=== PATIENT | female | born 1970 | race Caucasian/White ===

== ENCOUNTER → 2018-07-13 08:30 | Outpatient (CLI) | payer OTHER, MEDICAID, SELFPAY ==
[2018-07-13 09:07] LABS: Add Manual Diff / Slide Review NO; Basophils Percent Auto 0.8 % (0-2); Eosinophils Percent Auto 2.6 % (2-4); Hematocrit 38.7 % (36-46); Hemoglobin 13.3 g/dL (12.0-16.0); Lymphocytes Percent Auto 25.3 % (25-40); Mean Corpuscular HGB Conc 34.4 % (30-36); Mean Corpuscular Hemoglobin 32.3 PG (26-34); Mean Corpuscular Volume 93.8 fL (80-100); Monocytes Percent Auto 5.3 % (3-14); Neutrophils Absolute Auto 4600 /uL (3000-5900); Platelet Count 263 X10^3/uL (150-400); Red Blood Cell Count 4.13 X10^6/uL (4.0-5.2); White Blood Cell Count 6.9 X10^3/uL (4.5-11.0)
[2018-07-13 09:54] LABS: Alanine Aminotransferase 32 IU/L (9-52); Albumin 4.2 g/dL (3.5-5.0); Albumin Globulin Ratio 1.4 (1.0-2.8); Alkaline Phosphatase 71 U/L (38-126); Aspartate Aminotransferase 23 IU/L (14-36); BUN Creatinine Ratio 17.5 (6-22); Bilirubin Total 0.7 mg/dL (0.2-1.3); Blood Urea Nitrogen 14 mg/dL (7-17); Calcium 9.2 mg/dL (8.4-10.2); Carbon Dioxide 31 mmol/L (22-32); Chloride 103 mmol/L (98-107); Cholesterol 217 mg/dL (140-199); Estimated Glomerular Filt Rate > 60.0 mL/min (>60); Globulin 2.9 g/dL (1.7-4.1); Glucose 105 mg/dL (70-100); HDL Cholesterol 37 mg/dL (40-60); HEMOLYSIS < 15 (0-50); LDL Cholesterol Calculated 134 mg/dL (<100); Potassium 4.3 mmol/L (3.4-5.1); Sodium 143 mmol/L (137-145); Total Protein 7.1 g/dL (6.3-8.2); Triglycerides 228 mg/dL (35-150)
== END ==
PROVIDERS: PCP Physician Assistant; Visit Provider Physician Assistant
DX: F17.200 Nicotine dependence, unspecified, uncomplicated (principal); R06.00 Dyspnea, unspecified; Z13.220 Encounter for screening for lipoid disorders; Z13.6 Encounter for screening for cardiovascular disorders
CPT/HCPCS: 36415; 80053; 80061; 85025

== ENCOUNTER → 2019-01-03 10:43 | Outpatient (CLI) | payer OTHER, MEDICAID, SELFPAY ==
--- NOTE | 2019-01-03 10:44 | DI.MG.S_ITS ---
BILATERAL DIGITAL SCREENING MAMMOGRAM 3D/2D WITH CAD: 01/03/2019 CLINICAL: Routine screening. Baseline exam by default. No prior exams were available for comparison. The tissue of both breasts is predominantly fatty. Current study was also evaluated with a Computer Aided Detection (CAD) system. No significant masses, calcifications, or other findings are seen in either breast. IMPRESSION: NEGATIVE There is no mammographic evidence of malignancy. A 1 year screening mammogram is recommended. This exam was interpreted at Station ID: [id number]. NOTE: For mammograms, a report in lay terms will be sent to the patient. Approximately 15% of breast malignancies will not be visualized mammographically. In the management of a palpable breast mass, a negative mammogram must not discourage biopsy of a clinically suspicious lesion. Electronically Signed By: Bernardino gann/monroe:01/04/2019 08:01:05 letter sent: Normal Exam ACR BI-RADS Category 1: Negative [id number]
== END ==
PROVIDERS: PCP Physician Assistant; Visit Provider Physician Assistant
DX: Z12.31 Encounter for screening mammogram for malignant neoplasm of breast (principal)
CPT/HCPCS: 77063; 77067

== ENCOUNTER → 2019-01-29 16:07 | Outpatient (CLI) | payer OTHER, MEDICAID, SELFPAY ==
[2019-01-29 17:00] LABS: Influenza A and B by PCR Rapid Negative (Negative)
== END ==
PROVIDERS: PCP Physician Assistant; Visit Provider Physician Assistant
DX: R05 Cough (principal); R50.9 Fever, unspecified; R52 Pain, unspecified
CPT/HCPCS: 87400

== ENCOUNTER → 2019-03-15 11:20 | Outpatient (CLI) | payer OTHER, MEDICAID, SELFPAY ==
[2019-03-15 12:12] LABS: Alanine Aminotransferase 33 IU/L (9-52); Albumin 4.3 g/dL (3.5-5.0); Albumin Globulin Ratio 1.5 (1.0-2.8); Alkaline Phosphatase 71 U/L (38-126); Aspartate Aminotransferase 23 IU/L (14-36); Bilirubin Total 0.5 mg/dL (0.2-1.3); Blood Urea Nitrogen 14 mg/dL (7-17); Calcium 9.3 mg/dL (8.4-10.2); Carbon Dioxide 31 mmol/L (22-32); Chloride 104 mmol/L (98-107); Cholesterol 162 mg/dL (140-199); Estimated Glomerular Filt Rate > 60.0 mL/min (>60); Globulin 2.9 g/dL (1.7-4.1); Glucose 93 mg/dL (70-100); HDL Cholesterol 38 mg/dL (40-60); HEMOLYSIS < 15 (0-50); LDL Cholesterol Calculated 83 mg/dL (<100); Potassium 4.6 mmol/L (3.4-5.1); Sodium 140 mmol/L (137-145); Total Protein 7.2 g/dL (6.3-8.2); Triglycerides 206 mg/dL (35-150)
== END ==
PROVIDERS: PCP Physician Assistant; Visit Provider Physician Assistant
DX: E78.2 Mixed hyperlipidemia (principal)
CPT/HCPCS: 36415; 80053; 80061

== ENCOUNTER → 2020-06-17 09:37 | Outpatient (CLI) | payer OTHER, MEDICAID, SELFPAY ==
[2020-06-17 10:04] LABS: Hematocrit 40.9 % (36-46); Hemoglobin 13.9 g/dL (12.0-16.0); Mean Corpuscular HGB Conc 33.9 % (30-36); Mean Corpuscular Hemoglobin 32.3 PG (26-34); Mean Corpuscular Volume 95.1 fL (80-100); Platelet Count 256 X10^3/uL (150-400); Red Cell Distribution Width 13.1 % (11.6-14.8)
[2020-06-17 10:19] LABS: Alanine Aminotransferase 29 IU/L (<35); Albumin 4.5 g/dL (3.5-5.0); Albumin Globulin Ratio 1.5 (1.0-2.8); Alkaline Phosphatase 74 U/L (38-126); Aspartate Aminotransferase 25 IU/L (14-36); Bilirubin Total 0.5 mg/dL (0.2-1.3); Blood Urea Nitrogen 17 mg/dL (7-17); Calcium 9.6 mg/dL (8.4-10.2); Carbon Dioxide 27 mmol/L (22-32); Chloride 105 mmol/L (98-107); Cholesterol 182 mg/dL (140-199); Estimated Glomerular Filt Rate > 60.0 mL/min (>60); Globulin 3.1 g/dL (1.7-4.1); Glucose 112 mg/dL (70-100); HDL Cholesterol 40 mg/dL (40-60); HEMOLYSIS < 15 (0-50); LDL Cholesterol Calculated 115 mg/dL (<100); Potassium 4.1 mmol/L (3.4-5.1); Sodium 139 mmol/L (137-145); Total Protein 7.6 g/dL (6.3-8.2); Triglycerides 135 mg/dL (35-150)
[2020-06-17 15:51] LABS: Hemoglobin A1C% w Est Avg Glu 5.2 % (4.0-6.0)
== END ==
PROVIDERS: PCP Nurse Practitioner Family; Referring Provider Nurse Practitioner Family; Visit Provider Nurse Practitioner Family
DX: E78.2 Mixed hyperlipidemia (principal); J44.9 Chronic obstructive pulmonary disease, unspecified
CPT/HCPCS: 36415; 80053; 80061; 83036; 85027

== ENCOUNTER → 2021-06-24 16:30 | Outpatient (CLI) | payer OTHER, MEDICAID, SELFPAY ==
[2021-06-24 17:16] LABS: COVID19 -Nasal RAPID Negative (Negative)
== END ==
PROVIDERS: PCP Nurse Practitioner Family; Visit Provider Nurse Practitioner Family
DX: R05 Cough (principal)
CPT/HCPCS: 87635

== ENCOUNTER → 2021-06-24 17:09 | Outpatient (CLI) | payer OTHER, MEDICAID, SELFPAY ==
--- NOTE | 2021-06-24 17:10 | DI.RAD.S_ITS ---
PROCEDURE: XR CHEST 2V INDICATIONS: cough, congestion TECHNIQUE: 2 views of the chest were acquired. COMPARISON: [facility], , CHEST 2 VIEW, 03/25/2016, 16:15. FINDINGS: Surgical changes and devices: None. Lungs and pleura: Lungs are clear. No pleural effusions or pneumothorax. Mediastinum: Mediastinal contours are normal. Heart size is normal. Bones and chest wall: No suspicious bony abnormalities. Old healed left lateral mid to lower rib fractures are again seen. Soft tissues appear unremarkable. IMPRESSION: No focal infiltrate, pleural effusion or pneumothorax. Dictated by: Quentin Bowles M.D. on 06/25/2021 at 10:20 Approved by: Quentin Bowles M.D. on 06/25/2021 at 10:21
== END ==
PROVIDERS: PCP Nurse Practitioner Family; Referring Provider Nurse Practitioner Family; Visit Provider Nurse Practitioner Family
DX: J06.9 Acute upper respiratory infection, unspecified (principal); J44.9 Chronic obstructive pulmonary disease, unspecified; R05 Cough
CPT/HCPCS: 71046; 87635

== ENCOUNTER → 2021-10-22 12:26 | Outpatient (CLI) | payer OTHER, MEDICAID, SELFPAY ==
--- NOTE | 2021-10-22 12:27 | DI.RAD.S_ITS ---
PROCEDURE: XR FOOT LT MIN 3V INDICATIONS: left foot pain after injury TECHNIQUE: 3 views of the foot were acquired. COMPARISON: None. FINDINGS: Bones: Cortical irregularity and lucency present involving the proximal shaft of the 4th metatarsus. Mild hallux valgus metatarsus prima varus alignment and medial bunion. Mild 1st MTP and diffuse interphalangeal joint space narrowing. Plantar calcaneal enthesophyte. No suspicious bony lesions. Soft tissues: No tibiotalar joint effusion. Achilles tendon appears normal. IMPRESSION: 1. Findings suspicious for fracture involving the proximal shaft of the 4th metatarsus which has a subacute appearance. Recommend clinical correlation to point tenderness. 2. Hallux valgus alignment and medial bunion. 3. 1st MTP and diffuse interphalangeal joint degeneration. 4. Calcaneal enthesopathy. Dictated by: Moi Pinon [facility] Interpreted: Kimberlee Jean MD on 10/22/2021 at 13:11 Transcribed by: MELANY on 10/22/2021 at 13:13 Approved by: Kimberlee Jean M.D. on 10/22/2021 at 13:39
== END ==
PROVIDERS: PCP Nurse Practitioner Family; Referring Provider Nurse Practitioner Family; Visit Provider Nurse Practitioner Family
DX: S99.922A Unspecified injury of left foot, initial encounter (principal); M20.12 Hallux valgus (acquired), left foot; M21.612 Bunion of left foot; M19.072 Primary osteoarthritis, left ankle and foot; M77.32 Calcaneal spur, left foot; M79.672 Pain in left foot; X58.XXXA Exposure to other specified factors, initial encounter
CPT/HCPCS: 73630

== ENCOUNTER 2021-11-06 12:00 | Outpatient (RCR) | payer OTHER, MEDICAID, SELFPAY ==
--- NOTE | 2021-11-04 12:27 | PT.OIE ---
Current Diagnoses Sciatica, left side (11/04/21) Pain in left foot (11/04/21) Other abnormalities of gait and mobility (11/04/21) Past Medical History (Last Updated 10/22/21 @ 12:20 by TAPAN Arredondo) Left foot pain Medication refill URI (upper respiratory infection) Visit Care Team Role Provider Type TAPAN Arredondo Attending Provider Advanced Development Technologist Family Provider Primary Care Provider Referring Provider Specialty: Family Practice Address: [address] [place] [address], [facility] Email: [email or web address] Physical Therapy Initial Evaluation PT-OP-A Visit Information Start: 11/04/21 11:55 Freq: Status: Active Protocol: Document 11/04/21 11:15 DCW (Rec: 11/04/21 12:08 DCW [id number]) Out-Patient Physical Therapy Visit Information Visit Information Visit Type Initial Evaluation Visit Start Time 11:15 Visit Stop Time 11:50 Total Visit Minutes 35 Visit Number 1 Number of MANAGER TARGET Visits 0 Evaluation Information Evaluation Date 11/04/21 PT-OP-B Current Condition Start: 11/04/21 11:55 Freq: Status: Active Protocol: Document 11/04/21 11:15 DCW (Rec: 11/04/21 12:08 DCW [id number]) Current Condition History of Current Condition Onset Date ~3 month history Current Complaints Left hip/radicular leg pain following L foot fx History of Current Condition Pt is a 50 year old female presenting with a 1 month history of low back/posterior hip pain, which began a few months after pt caught her foot in a rock while hiking in July. Pt notes she thought it was just sprained, so I never did anything for it , but admits it changed the way she was walking, and after a few months, she began to have increased pain in her left posterior hip and down her left leg. Reports she was finally seen by her PCP on 10/22, was found to have a fracture in the shaft of her 4th metatarsal, and has since been wearing a boot. Notes the boot has actually created worsening hip pain, but does note that she woke up today feeling much better than she has been. 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 Prior Treatments and Tests L foot x-ray: IMPRESSION: 1. Findings suspicious for fracture involving the proximal shaft of the 4th metatarsus which has a subacute appearance. Recommend clinical correlation to point tenderness. 2. Hallux valgus alignment and medial bunion. 3. 1st MTP and diffuse interphalangeal joint degeneration. 4. Calcaneal enthesopathy. Dictated by: Moi Pinon RRJuan Interpreted: Kimberlee Jean MD on 10/22/2021 Treatment Goals Patient/Caregiver Goals I really need to get rid of this back pain so I can get back to work. PT-OP-C Subjective Start: 11/04/21 11:55 Freq: Status: Active Protocol: Document 11/04/21 11:15 DCW (Rec: 11/04/21 12:08 DCW [id number]) OP-PT Subjective Patient Comments Patient Comments I wonder how much this boot is actually making my back worse. Patient Questionnaires Lower Extremity Functional Scale LEFS Score 15/80 = 18.75% LEFS Impairment 80 to 99% Impaired (Score 1-16 ) PT-OP-F Manual Assessment Start: 11/04/21 11:55 Freq: Status: Active Protocol: Document 11/04/21 11:15 DCW (Rec: 11/04/21 12:14 DCW [id number]) Manual Assessments Soft Tissue Assessment Soft Tissue Mobility Assessment Severe tone with tenderness to palpation 3/4: Wincing and withdraw at left piriformis. No notable complaints of pain along paraspinals or lateral hip Joint Mobility Assessment Joint Mobility Assessment Hypomobility with lumbar P->A joint mobility PT-OP-G Mobility & Gait Start: 11/04/21 11:55 Freq: Status: Active Protocol: Document 11/04/21 11:15 DCW (Rec: 11/04/21 12:14 DCW [id number]) OP Gait Assessment Comments Gait Comments Pt stands with a clear uneven lean to the R secondary to raised base of left walking boot vs right footwear PT-OP-L Special Tests Start: 11/04/21 11:55 Freq: Status: Active Protocol: Document 11/04/21 11:15 DCW (Rec: 11/04/21 12:14 DCW [id number]) Special Tests Lumbar Spine Special Tests Straight Leg Raise Test Results c/o Hamstring tightness Slump Test Results c/o Hamstring tightness Compression Test Results Negative A-P Shearing Test Results Negative Hip Special Tests MANSI Test Results Negative Piriformis Test Results Strongly replicates radicular symptoms PT-OP-Q Treatments Start: 11/04/21 11:55 Freq: Status: Active Protocol: Document 11/04/21 11:15 DCW (Rec: 11/04/21 12:09 DCW [id number]) Therapeutic Exercises Supine Exercises 1 Supine Exercise Name Piriformis stretch Side left Comments Knee to opposite shoulder Sitting Exercises 2 Sitting Exercise Name Self piriformis STM /c tennis ball 1 Sitting Exercise Name Piriformis stretch Side left Comments Seated figure-4 PT-OP-T Assessment and Plan Start: 11/04/21 11:55 Freq: Status: Active Protocol: Document 11/04/21 11:15 DCW (Rec: 11/04/21 12:27 DCW [id number]) Physical Therapy Assessment Rehab Potential Rehabilitation Potential Excellent Evaluation Complexity Number of Personal Factors/Comorbidities 1-2 Number of Body Systems Impaired 3 Clinical Presentation at Evaluation Stable Impairments Impairments Gait,Pain,Posture,Soft Tissue Mobility,Tone Goals Two Impairment Pt experiences radiating pain along posterior L thigh and lateral lower leg Senior Living Goal (LTG) 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 LTG Duration 12/30/21 One Impairment Pt does not have an appropriate home exercise program Short Term Goal (STG) Pt to be independent and compliant with an appropriate HEP STG Duration 12/05/21 Assessment Summary Assessment Pt presents with signs and symptoms consistent with piriformis syndrome, possibly resulting from changes to her gait pattern following the fracture of her left 4th metatarsal. Pt has a very hypertonic left piriformis, with palpation replicating many of her radicular symptoms . Pt responded very well to stretching and brief palpation during assessment, noting immediate improvement. Pt was given a cork insert on her right shoe to decrease high difference between her shoe and walking boot. Pt responsive to instructions for stretching and self-STM of left piriformis. Pt will likely benefit from continued skilled therapy focusing on decreasing tone and neural tension in left leg. Physical Therapy Plan Frequency and Duration Frequency of Treatment 2x/Week Duration of Treatment 8 weeks Plan of Care Start Date 11/04/21 Plan of Care End Date 12/30/21 Therapeutic Interventions Therapeutic Interventions Aquatic Therapy,Gait Training, Home Exercise Program,Joint Mobilizations,Manual Therapy, Patient/Caregiver Education, Self-Care/Home Management,Soft Tissue Mobilization, Therapeutic Activities, Therapeutic Exercises Modalities Ultrasound Next Visit Focus/Plan Next Note Type Treatment Note Next Visit Plan Flexibility/stretching, STM
--- NOTE | 2021-11-04 12:28 | PT.OPPOC ---
Physical, Occupational & Speech Therapy At [facility] Current Diagnoses Sciatica, left side (11/04/21) Pain in left foot (11/04/21) Other abnormalities of gait and mobility (11/04/21) Visit Care Team Role Provider Type TAPAN Arredondo Attending Provider Advanced Account Receivable Associate Family Provider Primary Care Provider Referring Provider Specialty: Family Practice Address: [address] [place] [address], [id number] Email: [email or web address] Plan Of Care PT-OP-T Assessment and Plan Start: 11/04/21 11:55 Freq: Status: Active Protocol: Document 11/04/21 11:15 DCW (Rec: 11/04/21 12:27 DCW [id number]) Physical Therapy Assessment Rehab Potential Rehabilitation Potential Excellent Evaluation Complexity Number of Personal Factors/Comorbidities 1-2 Number of Body Systems Impaired 3 Clinical Presentation at Evaluation Stable Impairments Impairments Gait,Pain,Posture,Soft Tissue Mobility,Tone Goals Two Impairment Pt experiences radiating pain along posterior L thigh and lateral lower leg Retirement Goal (LTG) 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 LTG Duration 12/30/21 One Impairment Pt does not have an appropriate home exercise program Short Term Goal (STG) Pt to be independent and compliant with an appropriate HEP STG Duration 12/05/21 Assessment Summary Assessment Pt presents with signs and symptoms consistent with piriformis syndrome, possibly resulting from changes to her gait pattern following the fracture of her left 4th metatarsal. Pt has a very hypertonic left piriformis, with palpation replicating many of her radicular symptoms . Pt responded very well to stretching and brief palpation during assessment, noting immediate improvement. Pt was given a cork insert on her right shoe to decrease high difference between her shoe and walking boot. Pt responsive to instructions for stretching and self-STM of left piriformis. Pt will likely benefit from continued skilled therapy focusing on decreasing tone and neural tension in left leg. Physical Therapy Plan Frequency and Duration Frequency of Treatment 2x/Week Duration of Treatment 8 weeks Plan of Care Start Date 11/04/21 Plan of Care End Date 03/16/22 Therapeutic Interventions Therapeutic Interventions Aquatic Therapy,Gait Training, Home Exercise Program,Joint Mobilizations,Manual Therapy, Patient/Caregiver Education, Self-Care/Home Management,Soft Tissue Mobilization, Therapeutic Activities, Therapeutic Exercises Modalities Ultrasound Next Visit Focus/Plan Next Note Type Treatment Note Next Visit Plan Flexibility/stretching, STM Plan of Care Dates Plan of Care Start Date 11/04/21 Plan of Care End Date 12/30/21 Electronically Signed by: Tomas Duke, PT 11/04/21 [id number] Please Sign and Return: I have reviewed this Plan of Care and certify that the skilled therapy services above are required to meet the patient?s needs. Physician Signature Date Printed Name and Credentials Clinical Instructor Signature Printed Name and Credentials
--- NOTE | 2021-11-06 12:43 | PT.OTN ---
Current Diagnoses Sciatica, left side (11/06/21) Pain in left foot (11/06/21) Other abnormalities of gait and mobility (11/06/21) Physical Therapy Treatment Note PT-OP-A Visit Information Start: 11/04/21 11:55 Freq: Status: Active Protocol: Document 11/06/21 12:00 DCW (Rec: 11/06/21 12:43 DCW [id number]) Out-Patient Physical Therapy Visit Information Visit Information Visit Type Treatment Note Visit Start Time 12:00 Visit Stop Time 12:45 Total Visit Minutes 45 Visit Number 2 Number of CITY RECORDER Visits 0 Evaluation Information Evaluation Date 11/04/21 PT-OP-B Current Condition Start: 11/04/21 11:55 Freq: Status: Active Protocol: Document 11/04/21 11:15 DCW (Rec: 11/04/21 12:08 DCW [id number]) Current Condition History of Current Condition Onset Date ~3 month history Current Complaints Left hip/radicular leg pain following L foot fx History of Current Condition Pt is a 50 year old female presenting with a 1 month history of low back/posterior hip pain, which began a few months after pt caught her foot in a rock while hiking in July. Pt notes she thought it was just sprained, so I never did anything for it , but admits it changed the way she was walking, and after a few months, she began to have increased pain in her left posterior hip and down her left leg. Reports she was finally seen by her PCP on 10/22, was found to have a fracture in the shaft of her 4th metatarsal, and has since been wearing a boot. Notes the boot has actually created worsening hip pain, but does note that she woke up today feeling much better than she has been. 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 Prior Treatments and Tests L foot x-ray: IMPRESSION: 1. Findings suspicious for fracture involving the proximal shaft of the 4th metatarsus which has a subacute appearance. Recommend clinical correlation to point tenderness. 2. Hallux valgus alignment and medial bunion. 3. 1st MTP and diffuse interphalangeal joint degeneration. 4. Calcaneal enthesopathy. Dictated by: Moi GÓMEZ Interpreted: Kimberlee Jean MD on 10/22/2021 Treatment Goals Patient/Caregiver Goals I really need to get rid of this back pain so I can get back to work. PT-OP-C Subjective Start: 11/04/21 11:55 Freq: Status: Active Protocol: Document 11/06/21 12:00 DCW (Rec: 11/06/21 12:43 DCW [id number]) OP-PT Subjective Patient Comments Patient Comments The foot is what's really bothing me. The leg hurts, but it's not crippling me. PT-OP-F Manual Assessment Start: 11/04/21 11:55 Freq: Status: Active Protocol: Document 11/04/21 11:15 DCW (Rec: 11/04/21 12:14 DCW [id number]) Manual Assessments Soft Tissue Assessment Soft Tissue Mobility Assessment Severe tone with tenderness to palpation 3/4: Wincing and withdraw at left piriformis. No notable complaints of pain along paraspinals or lateral hip Joint Mobility Assessment Joint Mobility Assessment Hypomobility with lumbar P->A joint mobility PT-OP-G Mobility & Gait Start: 11/04/21 11:55 Freq: Status: Active Protocol: Document 11/04/21 11:15 DCW (Rec: 11/04/21 12:14 DCW [id number]) OP Gait Assessment Comments Gait Comments Pt stands with a clear uneven lean to the R secondary to raised base of left walking boot vs right footwear PT-OP-L Special Tests Start: 11/04/21 11:55 Freq: Status: Active Protocol: Document 11/04/21 11:15 DCW (Rec: 11/04/21 12:14 DCW [id number]) Special Tests Lumbar Spine Special Tests Straight Leg Raise Test Results c/o Hamstring tightness Slump Test Results c/o Hamstring tightness Compression Test Results Negative A-P Shearing Test Results Negative Hip Special Tests MANSI Test Results Negative Piriformis Test Results Strongly replicates radicular symptoms PT-OP-Q Treatments Start: 11/04/21 11:55 Freq: Status: Active Protocol: Document 11/06/21 12:00 DCW (Rec: 11/06/21 12:43 DCW [id number]) Therapeutic Exercises Supine Exercises 2 Supine Exercise Name Hamstring stretch Side left 1 Supine Exercise Name Piriformis stretch Side left Comments Knee to opposite shoulder Sidelying Exercises 2 Sidelying Exercise Name Reverse Clamshell Side bilateral 1 Sidelying Exercise Name Clamshell Side bilateral Manual Therapy Treatment Soft Tissue Mobilization 1 Body Location L piriformis Mobilization Type Strumming,Sustained Pressure Intensity/Depth Moderate Body Position Sidelying PT-OP-T Assessment and Plan Start: 11/04/21 11:55 Freq: Status: Active Protocol: Document 11/06/21 12:00 DCW (Rec: 11/06/21 12:43 DCW [id number]) Physical Therapy Assessment Impairments Impairments Gait,Pain,Posture,Soft Tissue Mobility,Tone Goals Two Impairment Pt experiences radiating pain along posterior L thigh and lateral lower leg Residential Goal (LTG) 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 LTG Duration 12/30/21 One Impairment Pt does not have an appropriate home exercise program Short Term Goal (STG) Pt to be independent and compliant with an appropriate HEP STG Duration 12/05/21 Assessment Summary Assessment Pt tolerated treatment okay today, somewhat self-limiting with stretching and a little resistant to extended stretching. Does admit she doesn't push it too much at home, willing to at least try stretching a little more frequently. Physical Therapy Plan Frequency and Duration Frequency of Treatment 2x/Week Duration of Treatment 8 weeks Plan of Care Start Date 11/04/21 Plan of Care End Date 12/30/21 Therapeutic Interventions Therapeutic Interventions Aquatic Therapy,Gait Training, Home Exercise Program,Joint Mobilizations,Manual Therapy, Patient/Caregiver Education, Self-Care/Home Management,Soft Tissue Mobilization, Therapeutic Activities, Therapeutic Exercises Modalities Ultrasound Next Visit Focus/Plan Next Note Type Treatment Note Next Visit Plan Flexibility/stretching, STM
--- NOTE | 2021-11-09 16:10 | PT-OP ANOTE ---
Pt cancelled tomorrow's appt, reported to front desk associate: taylor virus concern, feeling ill. Pt has next appt on 11/13/21.
--- NOTE | 2022-07-26 11:57 | PT.OPDS ---
Current Diagnoses Sciatica, left side (11/06/21) Pain in left foot (11/06/21) Other abnormalities of gait and mobility (11/06/21) Visit Care Team Role Provider Type TAPAN Arredondo Attending Provider Advanced Retail Business Development Manager Family Provider Primary Care Provider Referring Provider Specialty: Medical Address: [address] [place] [address], [id number] Email: [email or web address] Visit Number Visit Number 2 Discharge Summary PT-OP-B Current Condition Start: 11/04/21 11:55 Freq: Status: Active Protocol: Document 11/04/21 11:15 DCW (Rec: 11/04/21 12:08 DCW [id number]) Current Condition History of Current Condition Onset Date ~3 month history Current Complaints Left hip/radicular leg pain following L foot fx History of Current Condition Pt is a 50 year old female presenting with a 1 month history of low back/posterior hip pain, which began a few months after pt caught her foot in a rock while hiking in July. Pt notes she thought it was just sprained, so I never did anything for it , but admits it changed the way she was walking, and after a few months, she began to have increased pain in her left posterior hip and down her left leg. Reports she was finally seen by her PCP on 10/22, was found to have a fracture in the shaft of her 4th metatarsal, and has since been wearing a boot. Notes the boot has actually created worsening hip pain, but does note that she woke up today feeling much better than she has been. 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 Prior Treatments and Tests L foot x-ray: IMPRESSION: 1. Findings suspicious for fracture involving the proximal shaft of the 4th metatarsus which has a subacute appearance. Recommend clinical correlation to point tenderness. 2. Hallux valgus alignment and medial bunion. 3. 1st MTP and diffuse interphalangeal joint degeneration. 4. Calcaneal enthesopathy. Dictated by: Moi GÓMEZ Interpreted: Kimberlee Jean MD on 10/22/2021 Treatment Goals Patient/Caregiver Goals I really need to get rid of this back pain so I can get back to work. PT-OP-C Subjective Start: 11/04/21 11:55 Freq: Status: Active Protocol: Document 11/06/21 12:00 DCW (Rec: 11/06/21 12:43 DCW [id number]) OP-PT Subjective Patient Comments Patient Comments The foot is what's really bothing me. The leg hurts, but it's not crippling me. PT-OP-F Manual Assessment Start: 11/04/21 11:55 Freq: Status: Active Protocol: Document 11/04/21 11:15 DCW (Rec: 11/04/21 12:14 DCW [id number]) Manual Assessments Soft Tissue Assessment Soft Tissue Mobility Assessment Severe tone with tenderness to palpation 3/4: Wincing and withdraw at left piriformis. No notable complaints of pain along paraspinals or lateral hip Joint Mobility Assessment Joint Mobility Assessment Hypomobility with lumbar P->A joint mobility PT-OP-G Mobility & Gait Start: 11/04/21 11:55 Freq: Status: Active Protocol: Document 11/04/21 11:15 DCW (Rec: 11/04/21 12:14 DCW [id number]) OP Gait Assessment Comments Gait Comments Pt stands with a clear uneven lean to the R secondary to raised base of left walking boot vs right footwear PT-OP-L Special Tests Start: 11/04/21 11:55 Freq: Status: Active Protocol: Document 11/04/21 11:15 DCW (Rec: 11/04/21 12:14 DCW [id number]) Special Tests Lumbar Spine Special Tests Straight Leg Raise Test Results c/o Hamstring tightness Slump Test Results c/o Hamstring tightness Compression Test Results Negative A-P Shearing Test Results Negative Hip Special Tests MANSI Test Results Negative Piriformis Test Results Strongly replicates radicular symptoms PT-OP-T Assessment and Plan Start: 11/04/21 11:55 Freq: Status: Active Protocol: Document 07/26/22 11:57 DCW (Rec: 07/26/22 11:57 DCW [id number]) Physical Therapy Assessment Assessment Summary Assessment Pt has not been seen in eight months. Will discharge at this time. Pt will require a new referral in order to return to skilled therapy. Physical Therapy Plan Discharge Physical Therapy Discharge Reasons No Longer Attending PT Next Visit Focus/Plan Next Note Type Discharge Summary
== END 2022-07-27 11:51 | disposition home or self-care (01) ==
LOC: PHYS 12:00
PROVIDERS: Family Provider Nurse Practitioner Family; PCP Nurse Practitioner Family; Referring Provider Nurse Practitioner Family; Visit Provider Nurse Practitioner Family
DX: M54.32 Sciatica, left side (principal); R26.89 Other abnormalities of gait and mobility; M79.672 Pain in left foot
CPT/HCPCS: 97110; 97140; 97161

== ENCOUNTER → 2022-02-15 17:54 | Outpatient (CLI) | payer OTHER, MEDICAID, SELFPAY ==
[2022-02-15 19:01] LABS: Influenza A - CEPHEID Flu A NEGATIVE (NEGATIVE); Influenza B - CEPHEID Flu B NEGATIVE (NEGATIVE)
[2022-02-15 19:05] LABS: COVID-19 CEPHEID PCR (VTM/NP) Negative (Negative)
== END ==
PROVIDERS: Family Provider Nurse Practitioner Family; PCP Nurse Practitioner Family; Visit Provider Nurse Practitioner Family
DX: R11.2 Nausea with vomiting, unspecified (principal); R19.7 Diarrhea, unspecified
CPT/HCPCS: 0240U

== ENCOUNTER → 2022-02-17 14:16 | Outpatient (CLI) | payer OTHER, MEDICAID, SELFPAY ==
[2022-02-17 15:53] LABS: Clostridium Difficile Tox PCR Negative for C. diff (Negative)
== END ==
PROVIDERS: Nurse Practitioner Family; Family Provider Nurse Practitioner Family; PCP Nurse Practitioner Family; Referring Provider Family Medicine; Visit Provider Family Medicine
DX: R19.7 Diarrhea, unspecified (principal)
CPT/HCPCS: 87045; 87177; 87493; 87899

== ENCOUNTER → 2022-02-18 13:13 | Outpatient (CLI) | payer OTHER, MEDICAID, SELFPAY ==
[2022-02-18 15:01] LABS: Add Manual Diff / Slide Review NO; Basophils Absolute Auto 100 /uL (0-100); Basophils Percent Auto 0.6 % (0-2); Eosinophils Absolute Auto 400 /uL (0-450); Hematocrit 39.8 % (36-46); Hemoglobin 13.9 g/dL (12.0-16.0); Lymphocytes Absolute Auto 2900 /uL (1100-4500); Lymphocytes Percent Auto 31.3 % (25-40); Mean Corpuscular HGB Conc 35.1 % (30-36); Mean Corpuscular Hemoglobin 32.9 PG (26-34); Mean Corpuscular Volume 93.9 fL (80-100); Monocytes Absolute Auto 500 /uL (0-900); Monocytes Percent Auto 5.4 % (3-14); Neutrophils Absolute Auto 5400 /uL (1500-7000); Neutrophils Percent Auto 58.7 % (50-75); Platelet Count 206 X10^3/uL (150-400); Red Blood Cell Count 4.23 X10^6/uL (4.0-5.2); White Blood Cell Count 9.2 X10^3/uL (4.5-11.0)
[2022-02-18 15:23] LABS: Erythrocyte Sedimentation Rate 16 MM/HR (0-20)
[2022-02-18 16:31] LABS: TSH w/ Reflex to FT4 1.35 uIU/mL (0.47-4.68)
[2022-02-18 19:34] LABS: Alanine Aminotransferase 67 IU/L (<35); Albumin 3.9 g/dL (3.5-5.0); Albumin Globulin Ratio 1.4 (1.0-2.8); Alkaline Phosphatase 70 U/L (38-126); Aspartate Aminotransferase 46 IU/L (14-36); BUN Creatinine Ratio 11.9 (6-22); Bilirubin Total 0.4 mg/dL (0.2-1.3); Blood Urea Nitrogen 8 mg/dL (7-17); C-Reactive Protein Quant 1.1 mg/dL (<1.0); Calcium 9.4 mg/dL (8.4-10.2); Carbon Dioxide 27 mmol/L (22-32); Chloride 107 mmol/L (98-107); Cholesterol 183 mg/dL (140-199); Estimated Glomerular Filt Rate > 60 mL/min (>60); Globulin 2.7 g/dL (1.7-4.1); Glucose 72 mg/dL (70-100); HDL Cholesterol 37 mg/dL (40-60); HEMOLYSIS < 15 (0-50); LDL Cholesterol Calculated 102 mg/dL (<100); Potassium 3.5 mmol/L (3.4-5.1); Sodium 140 mmol/L (137-145); Total Protein 6.6 g/dL (6.3-8.2); Triglycerides 220 mg/dL (35-150)
== END ==
PROVIDERS: Family Provider Nurse Practitioner Family; PCP Family Medicine; Referring Provider Family Medicine; Visit Provider Family Medicine
DX: R19.7 Diarrhea, unspecified (principal); E78.2 Mixed hyperlipidemia; F32.9 Major depressive disorder, single episode, unspecified; J44.9 Chronic obstructive pulmonary disease, unspecified
CPT/HCPCS: 36415; 80053; 80061; 84443; 85025; 85651; 86140

== ENCOUNTER 2022-03-01 14:09 | Emergency (ER) | payer OTHER, MEDICAID, SELFPAY ==
[2022-03-01 14:15] VITALS: BP 133/81; PULSE 105; RESP 22; TEMP 36.6; O2SAT 97
--- NOTE | 2022-03-01 14:17 | DI.RAD.S_ITS ---
PROCEDURE: XR KNEE LT 3V INDICATIONS: pain, felt a pop TECHNIQUE: 3 views of the knee were acquired. COMPARISON: None. FINDINGS: Bones: No fractures or dislocations. No suspicious bony lesions. Soft tissues: Moderate joint effusion. No suspicious soft tissue calcifications. IMPRESSION: Moderate joint effusion. No fracture. Approved by: Riaz Christie M.D. on 03/01/2022 at 14:41
--- NOTE | 2022-03-01 16:25 | ED.LOWEXIN ---
HPI - Extremity Injury (Lower) <Lily Cadena PA-C - Last Filed: 03/01/22 20:00> General Chief Complaint: Extremity Injury, Lower Stated Complaint: lt knee pop on tuesday cant walk on it Time Seen by Provider: 03/01/22 15:52 Source: patient Mode of arrival: Wheelchair History of Present Illness HPI Narrative: Patient is a 51 year old female presenting with left knee pain x 3 days. Patient twisted while unloading groceries from car when she felt a pop in her left knee with immediate pain. Pain is constant but worsens while standing/bearing weight. She also reports her knee feels tight and locks up. Patient works as a housekeeper cleaning cooking and reports her knee became very swollen and increasingly painful after working yesterday. She denies any decreased sensation or pain radiation in her left leg. She has been alternating heat/ice, and has been taking 1000mg ibuprofen every 6 hours without relief. Related Data Previous Rx's Medication Instructions Recorded ipratropium 0.5 mg-albuterol 3 mg 3 ml INH Q4-6HP PRN #90 ea 07/20/17 (2.5 mg base)/3 mL nebulization soln ipratropium 20 mcg-albuterol 100 1 puff INHALATION Q6H PRN #4 gram 04/10/ mcg/actuation mist for inhalation (Combivent Respimat) rosuvastatin 10 mg tablet See Rx Instructions .ROUTE 10/07/21 .COMPLEX #90 tab bupropion HCl 100 mg tablet See Rx Instructions .ROUTE 10/22/21 .COMPLEX #90 tab fluvoxamine 100 mg tablet See Rx Instructions .ROUTE 12/29/21 .COMPLEX #90 tab montelukast 10 mg tablet 10 mg PO QDAY #30 tab 01/29/22 (Singulair) diphenoxylate-atropine 2.5 1 tab PO TID #30 tab 02/17/22 mg-0.025 mg tablet (Lomotil) fluticasone 100 mcg-salmeterol 50 1 inh INHALATION BID #60 ea 02/18/22 mcg/dose blistr powdr for inhalation (Advair Diskus) diclofenac sodium 1 % topical gel 2 g TOPICAL QID PRN #100 g 03/01/22 ketorolac 10 mg tablet 10 mg PO Q8H PRN #20 tab 03/01/22 Allergies Allergy/AdvReac Type Severity Reaction Status Date / Time Penicillins Allergy Unknown Verified 03/01/22 17:45 trazodone [TRAZODONE] AdvReac Intermediate [place] hyper Verified 03/01/22 17:45 Review of Systems <Lily Cadena PA-C - Last Filed: 03/01/22 20:00> Review of Systems ROS Unobtainable: All systems reviewed & are unremarkable except as noted in HPI and below Constitutional Constitutional: Denies fatigue, Denies fever(s), Denies frequent falls and Denies headache(s) Eyes Eyes: Denies change in vision, Denies other visual disturbances and Denies eye pain ENT Ears, Nose, Mouth, and Throat: Denies dysphagia, Denies dizziness and Denies headache(s) Cardiovascular Cardiovascular: Denies chest pain, Denies lightheadedness and Denies dyspnea Respiratory Respiratory: Denies cough and Denies dyspnea Gastrointestinal Gastrointestinal: Denies dysphagia, Denies diarrhea, Denies nausea and Denies vomiting Genitourinary Genitourinary: Denies dysuria and Denies dysuria Musculoskeletal Musculoskeletal: Reports as per HPI, Reports arthralgias, Reports joint swelling, Reports limited range of motion and Denies radiating pain into limb Integumentary/Breasts Skin/Breast: Denies erythema, Denies rash and Denies unusual bruising Neurologic Neurologic: Denies dizziness, Denies frequent falls and Denies headache(s) Psychiatric Psychiatric: Reports system reviewed and no additional complaints, except as documented Endocrine Endocrine: Reports system reviewed and no additional complaints, except as documented and Denies fatigue Hematologic/Lymphatic Hematologic/Lymphatic: Reports system reviewed and no additional complaints, except as documented Allergic/Immunologic Allergic/Immunologic: Reports system reviewed and no additional complaints, except as documented Patient History <Lily Cadena PA-C - Last Filed: 03/01/22 20:00> Medical History Left foot pain Medication refill URI (upper respiratory infection) Social History Smoking Status: Current every day smoker Tobacco: How many years used: 27 quit status: not considering quitting second hand exposure: No alcohol intake: current (occasional cocktail, but only socially.) substance use type: does not use Smoking Status: Current every day smoker Exam <Lily Cadena PA-C - Last Filed: 03/01/22 20:00> Initial Vital Signs Initial Vital Signs: Vital Signs Temperature 97.8 F 03/01/22 14:15 Pulse Rate 105 H 03/01/22 14:15 Respiratory Rate 22 03/01/22 14:15 Blood Pressure 133/81 03/01/22 14:15 Pulse Oximetry 97 03/01/22 14:15 Const General: cooperative, healthy appearing and in distress HENMT Head: normal to inspection, normocephalic and atraumatic Eyes General: Yes appearance normal, both eyes and all related structures Chest Chest: normal inspection of the chest Resp Effort & Inspection: normal respiratory effort and able to speak in complete sentences Auscultation: clear to auscultation bilaterally Cardio Rate: regular rate Rhythm: regular rhythm Skin General: no rashes or lesions noted Neuro General: patient alert and patient awake Extrem Left lower extremity: knee Details: abnormal to inspection, tenderness Location: of the patella and of the medial joint line, swelling and abnormal ROM Details: pain with active ROM Details: with extension and pain with passive ROM Details: with extension and with flexion Psych Appearance: grossly normal Mental Status: mental status grossly normal <DO Catrina Paiz Last Filed: 03/02/22 00:45> Initial Vital Signs Initial Vital Signs: Vital Signs Temperature 97.8 F 03/01/22 14:15 Pulse Rate 105 H 03/01/22 14:15 Respiratory Rate 03/01/22 14:15 Blood Pressure 133/81 03/01/22 14:15 Pulse Oximetry 97 03/01/22 14:15 <Louis Saini DO - Last Filed: 03/02/22 00:45> Orthopedic Splinting/Casting Injury #1: Side: left Lower Extremity Injury Location: knee Lower Extremity Immobilizer: knee immobilizer Other Orthopedic Equipment: crutches Course <Lily Cadena PA-C - Last Filed: 03/01/22 20:00> Orders Ordered: Discontinued Medications Acetaminophen (Acetaminophen 325 Mg Tablet) 975 mg PO NOW ONE Stop: 03/01/22 17:26 Last Admin: 03/01/22 17:40 Dose: 975 mg Documented by: PRETTY Tramadol HCl (Tramadol 50 Mg Tablet) 50 mg PO NOW ONE Stop: 03/01/22 17:26 Last Admin: 03/01/22 17:47 Dose: 50 mg Documented by: PRETTY Vital Signs Vital signs: Vital Signs - 8 hr 03/01/22 14:15 Temperature 97.8 F Pulse Rate 105 H Respiratory Rate 22 Blood Pressure 133/81 Pulse Oximetry 97 <Louis Saini DO - Last Filed: 03/02/22 00:45> Orders Ordered: Discontinued Medications Acetaminophen (Acetaminophen 325 Mg Tablet) 975 mg PO NOW ONE Stop: 03/01/22 17:26 Last Admin: 03/01/22 17:40 Dose: 975 mg Documented by: PRETTY Tramadol HCl (Tramadol 50 Mg Tablet) 50 mg PO NOW ONE Stop: 03/01/22 17:26 Last Admin: 03/01/22 17:47 Dose: 50 mg Documented by: PRETTY Vital Signs Vital signs: Vital Signs - 8 hr 03/01/22 14:15 Temperature 97.8 F Pulse Rate 105 H Respiratory Rate 22 Blood Pressure 133/81 Pulse Oximetry 97 MDM - Extremity Injury (Lower) <Lily Cadena PA-C - Last Filed: 03/01/22 20:00> Differential Diagnosis Differential diagnosis: Likely other (left knee pain) Imaging Data Extremity x-ray #1: Radiologist's Impression: [address] [address] XRay Report Signed Patient: Elsy Villagomez MR#: [id number] : 1970 Acct:[id number] Age/Sex: 51 / F Date of Service: 03/01/22 Loc: ED Accession Number: [id number] ?? Procedure: XR knee LT 3V Ordering Provider: Bernice Zee D.O. PROCEDURE:? XR KNEE LT 3V ? INDICATIONS:? pain, felt a pop ? TECHNIQUE:? 3 views of the knee were acquired.? ? COMPARISON:? None. ? FINDINGS:? ? Bones:? No fractures or dislocations.? No suspicious bony lesions.? ? Soft tissues:? Moderate joint effusion.? No suspicious soft tissue calcifications.? ? ? IMPRESSION:? Moderate joint effusion.? No fracture. ? ? ? Approved by: Riaz Christie M.D. on 03/01/2022 at 14:41? [facility] Narrative Medical decision making narrative: Patient is a 51 year old female presenting with left knee pain x 3 days. Upon physical exam, patient has a moderate joint effusion, tenderness to palpation along medial joint line, and reduced ROM of left knee. Imaging is consistent with moderate joint effusion. She will be put in knee immobilizer and crutches and advised to limit weight-bearing. I advised patient to take 600mg ibuprofen ever 4-6 hours as needed and to follow-up with her PCP in the next 1-2 weeks for re-evaluation and possible PT referral. I also suggested referral to [facility]. Discharge Plan Departure Patient Disposition: Home Clinical Impression: Knee Injury Qualifiers: Encounter type: initial encounter Laterality: left Qualified Code(s): S89.92XA - Unspecified injury of left lower leg, initial encounter Acute knee pain Qualifiers: Laterality: left Qualified Code(s): M25.562 - Pain in left knee Instructions: DI for Knee Sprain, DI for Knee Pain Activity Restrictions/Additional Instructions: You were seen today for knee pain with moderate joint effusion. As discussed, please refrain from bearing weight, elevate your left knee, and apply ice for 15 minutes every 4-6 hours. Follow up with your primary care provider in 1-2 weeks for re-evaluation and PT referral if necessary. I hope you feel better soon. This is not improving after one week after resting it and doing these things, please call [facility] and schedule an appointment for evaluation. *What to do: *Please continue to take your regular medications as directed. [x] New medication prescriptions sent to your pharmacy: [ [facility]] [ ] New medication written as a paper prescription [ ] No new medications given *Please follow up with your primary care provider in 2-3 days, call for an appointment. Let them know you were seen in the Emergency Department and that we asked that you be seen for follow-up. We will electronically transmit a record of today's note if your PCP is in our system *If you do not have a primary care provider please contact [phone] to establish care with one of the [facility] primary care providers. *Return to Emergency Department if you should have any new, worsening or concerning symptoms, such as [fever greater than 101F, chills, worsening pain, persistent vomiting or other bothersome symptoms] Prescriptions: New ketorolac 10 mg tablet 10 mg PO Q8H PRN (Reason: pain) Qty: 20 0RF Rx Instructions: Please take with food and water, do not take any NSAIDs with this diclofenac sodium 1 % gel 2 g topical QID PRN (Reason: knee pain) Qty: 100 0RF Rx Instructions: apply to single elbow, wrist or hand; for hand includes palm/fingers/back of hand No Action ipratropium-albuterol 3 ML solution for nebulization 3 ml INH Q4-6HP PRNQty: 90 1RF rosuvastatin 10 mg tablet See Rx Instructions .ROUTE .COMPLEX Qty: 90 0RF Dose Instruction: TAKE ONE TABLET BY MOUTH NIGHTLY AT BEDTIME Rx Instructions: TAKE ONE TABLET BY MOUTH NIGHTLY AT BEDTIME fluvoxamine 100 mg tablet See Rx Instructions .ROUTE .COMPLEX Qty: 90 0RF Dose Instruction: Take one tablet by mouth daily. Take with 50 mg tablet for a daily total of 150mgs. Rx Instructions: Take one tablet by mouth daily. Take with 50 mg tablet for a daily total of 150mgs. montelukast [Singulair] 10 mg tablet 10 mg PO QDAY Qty: 30 3RF fluticasone propion-salmeterol [Advair Diskus] 100-50 mcg/dose blister with device 1 inh inhalation BID Qty: 60 2RF bupropion HCl 100 mg tablet See Rx Instructions .ROUTE .COMPLEX Qty: 90 3RF Dose Instruction: TAKE ONE TABLET BY MOUTH ONE TIME DAILY Rx Instructions: TAKE ONE TABLET BY MOUTH ONE TIME DAILY Combivent Respimat 20-100 mcg/actuation mist 1 puff INHALATION Q6H PRN (Reason: asthma) Qty: 4 6RF diphenoxylate-atropine [Lomotil] 2.5-0.025 mg tablet 1 tab PO TID Qty: 30 1RF Referrals: [facility] [Provider Group] Shila Pritchard MD [Primary Care Provider] - Stand Alone Forms: Work Release Note <Louis Saini DO - Last Filed: 03/02/22 00:45> [facility] I was immediately available in the department for consultation. This documentation has been reviewed and I agree with assessment and plan. Supervised by Louis Saini DO
[2022-03-01] MEDS: ACETAMINOPHEN 325 MG TABLET 975 MG PO (17:40)
[2022-03-01] MEDS: TRAMADOL 50 MG TABLET PO (17:47)
== END 2022-03-01 18:02 | disposition home or self-care (01) ==
PROVIDERS: Emergency Provider Physician Assistant; Family Provider Nurse Practitioner Family; PCP Family Medicine
DX: S89.92XA Unspecified injury of left lower leg, initial encounter (principal); M25.562 Pain in left knee; X50.1XXA Overexertion from prolonged static or awkward postures, initial encounter
CPT/HCPCS: 73562; 99283

== ENCOUNTER → 2022-09-14 09:06 | Outpatient (CLI) | payer OTHER, MEDICAID, SELFPAY ==
[2022-09-14 11:03] LABS: Add Manual Diff / Slide Review NO; Basophils Absolute Auto 0 /uL (0-100); Basophils Percent Auto 0.6 % (0-2); Eosinophils Absolute Auto 200 /uL (0-450); Eosinophils Percent Auto 2.3 % (2-4); Hematocrit 40.2 % (36-46); Hemoglobin 13.3 g/dL (12.0-16.0); Lymphocytes Absolute Auto 2300 /uL (1100-4500); Lymphocytes Percent Auto 31.1 % (25-40); Mean Corpuscular HGB Conc 33.1 % (30-36); Mean Corpuscular Hemoglobin 31.6 PG (26-34); Mean Corpuscular Volume 95.6 fL (80-100); Monocytes Absolute Auto 400 /uL (0-900); Monocytes Percent Auto 4.9 % (3-14); Neutrophils Absolute Auto 4600 /uL (1500-7000); Neutrophils Percent Auto 61.1 % (50-75); Platelet Count 241 X10^3/uL (150-400); Red Blood Cell Count 4.21 X10^6/uL (4.0-5.2); White Blood Cell Count 7.5 X10^3/uL (4.5-11.0)
[2022-09-14 11:32] LABS: Alanine Aminotransferase 19 IU/L (<35); Albumin 4.1 g/dL (3.5-5.0); Albumin Globulin Ratio 1.5 (1.0-2.8); Alkaline Phosphatase 63 U/L (38-126); Aspartate Aminotransferase 20 IU/L (14-36); Bilirubin Total 0.5 mg/dL (0.2-1.3); Blood Urea Nitrogen 11 mg/dL (7-17); Calcium 9.3 mg/dL (8.4-10.2); Carbon Dioxide 25 mmol/L (22-32); Chloride 104 mmol/L (98-107); Cholesterol 177 mg/dL (140-199); Estimated Glomerular Filt Rate > 60 mL/min (>60); Globulin 2.7 g/dL (1.7-4.1); Glucose 86 mg/dL (70-100); HDL Cholesterol 44 mg/dL (40-60); HEMOLYSIS < 15 (0-50); LDL Cholesterol Calculated 90 mg/dL (<100); Potassium 3.9 mmol/L (3.4-5.1); Sodium 136 mmol/L (137-145); Total Protein 6.8 g/dL (6.3-8.2); Triglycerides 215 mg/dL (35-150)
== END ==
PROVIDERS: Family Provider Nurse Practitioner Family; PCP Family Medicine; Referring Provider Family Medicine; Visit Provider Family Medicine
DX: E78.2 Mixed hyperlipidemia (principal); R74.8 Abnormal levels of other serum enzymes
CPT/HCPCS: 36415; 80053; 80061; 85025

== ENCOUNTER → 2023-11-29 10:14 | Outpatient (CLI) | payer OTHER, MEDICAID, SELFPAY ==
--- NOTE | 2023-11-29 10:16 | DI.RAD.S_ITS ---
PROCEDURE: XR KNEE LT 3V INDICATIONS: left knee pain, chronic, osteoarthritis TECHNIQUE: 3 views of the knee were acquired. COMPARISON: [facility], CR, XR FOOT 3 VIEWS WEIGHT BEARING LEFT, 07/01/2022, 16:50. [facility], CR, XR KNEE ARTHRITIC SERIES BI, 04/14/2022, 14:54. [facility], CR, XR KNEE LT 3V, 03/01/2022, 14:25. FINDINGS: Bones: The rounded ossification adjacent to the medial tibial plateau margin. No suspicious bony lesions. Tricompartmental arthritic change. Soft tissues: Mild joint effusion. No suspicious soft tissue calcifications. IMPRESSION: Rounded ossification adjacent to the medial tibial plateau margin. This may represent an osteophyte which has been more prominent over multiple prior exams. Dictated by: Kimberlee Jean M.D. on 11/29/2023 at 14:29 Approved by: Kimberlee Jean M.D. on 11/29/2023 at 14:33
== END ==
PROVIDERS: PCP Family Medicine; Referring Provider Family Medicine; Visit Provider Family Medicine
DX: M17.12 Unilateral primary osteoarthritis, left knee (principal); M70.42 Prepatellar bursitis, left knee
CPT/HCPCS: 73562

== ENCOUNTER 2024-04-18 10:28 | Outpatient (CLI) | payer OTHER, MEDICAID, SELFPAY ==
[2024-04-18] VITALS (8 sets, daily range): BP systolic 106–135; BP diastolic 53–74; PULSE 66–87; RESP 14–22; TEMP 36.6; O2SAT 97–100
[2024-04-18] MEDS: MIDAZOLAM 2 MG/2 ML VIAL IV (10:52)
[2024-04-18] MEDS: BUPIVACAINE 0.5% (PF) 10 ML VIAL 5 ML INJ (10:55)
[2024-04-18] MEDS: iopamidoL 15 ML VIAL 3 ML INJ (10:55)
--- NOTE | 2024-04-18 11:00 | DI.RAD.S_ITS ---
PROCEDURE: PAIN GENICULAR NERVE BLOCK LT INDICATIONS: Left knee genicular block - LA COMPARISON: None. FINDINGS: Fluoroscopic spot filming was performed to verify placement of spinal needles at the geniculate nerve level(s), as labeled on the films. Appropriate location(s) of the needle tip(s) was confirmed by injection of iodinated contrast. IMPRESSION: Contrast a needle opacification overlying the geniculate nerve Dictated by: Kimberlee Jean M.D. on 04/18/2024 at 15:19 Approved by: Kimberlee Jean M.D. on 04/18/2024 at 15:21
--- NOTE | 2024-04-18 11:17 | P.PCN_ITS ---
Date/Time/Diagnoses Date of procedure: 04/18/24 Time of procedure: 11:00 Procedure Notes Physician: Avinash Ramos Total Fluoroscopy time (seconds): 12 Total sedation minutes: 11 Procedure in detail & Post-procedure care: Left Genicular Nerve Injections Indications: Elsy is presenting for treatment of left knee osteoarthritis with knee pain. Preoperative diagnosis: Left knee osteoarthritis Postoperative diagnosis: Same Focused Examination: Ax3 Mood and affect are normal Vital Signs: VSS Consent: Following review of allergies and potential side effects/complications, including, but not necessarily limited to, infection, allergic reaction, local tissue breakdown, stroke, temporary or permanent nerve injury, paralysis, and possible , the patient indicated that they understood and agreed to proceed.? An informed consent document was signed by the patient, witnessed by a nurse and placed in the patient's chart.? Additionally, other treatment options including medications and physical therapy were reviewed with the patient. All questions were answered. Site was then marked. Anesthesia: After review of previous anesthetic history and IV conscious sedation, the patient was deemed safe to proceed with today's procedure with IV conscious sedation. IV sedation was accomplished with midazolam 2 mg administered by the RN after order by Dr. Ramos. Sedation was titrated to patient comfort during the course of the procedure. Patient remained responsive to all verbal commands. Position: Prone Monitoring: NIBP, Pulse oximetry, 3 lead EKG Needle used: 22 ga, 3.5 inch spinal Contrast: Isovue 300-M 2 mL Injectate: 0.5% bupivacaine 1 mL per site Technique: The skin was prepped with chloraprep and then draped in a sterile fashion. Time out was performed as per protocol. Oxygen applied via NC. Skin and subcutaneous structures of the needle entry sites were then infiltrated with 5 mL of lidocaine 1% divided among the 3 injection sites. Under AP and lateral fluoroscopic control, the needles were guided into the expected location of the superomedial, superolateral and inferomedial genicular nerves. Isovue 300-M was then injected and the spread confirmed proper needle location. There was no evidence for intravascular uptake. After negative aspiration, the above- mentioned injectate was then slowly administered to each site and the needles withdrawn. The patient expressed no unusual discomfort or paresthesias during the injection. Band-Aids applied to injection sites. EBL: less than 1 ml Complications: None Post Procedure: Patient was taken to the recovery and monitored. The patient was provided a Pain Log to continue to record the patient's response to the target- specific procedure prior to the patient's follow-up visit with the referring physician. Patient was stable upon discharge. Detailed post procedure instructions were provided. Patient was asked to call in the event of worsening pain, fever, weakness, numbness or bladder or bowel incontinence.
== END 2024-04-18 11:24 | disposition home or self-care (01) ==
LOC: RAD 10:29
PROVIDERS: PCP Family Medicine; Referring Provider Anesthesiology; Visit Provider Anesthesiology
DX: M17.12 Unilateral primary osteoarthritis, left knee (principal)
CPT/HCPCS: 64454; 99152; J2250

== ENCOUNTER 2024-06-06 09:15 | Outpatient (CLI) | payer OTHER, MEDICAID, SELFPAY ==
[2024-06-06] VITALS (10 sets, daily range): BP systolic 103–144; BP diastolic 58–69; PULSE 62–75; RESP 11–24; TEMP 36.4; O2SAT 95–100
--- NOTE | 2024-06-06 09:45 | DI.RAD.S_ITS ---
PROCEDURE: GENICULAR RFA LEFT INDICATIONS: OSTEOARTHRITIS OF LEFT KNEE COMPARISON: None. FINDINGS: Fluoroscopic spot filming was performed to verify placement of spinal needles at the knee. level(s), as labeled on the films. Appropriate location(s) of the needle tip(s) was confirmed by injection of iodinated contrast. Prominent arthritic change. IMPRESSION: Needle localization overlying the distal femur as well as proximal tibia. Dictated by: Kimberlee Jean M.D. on 06/06/2024 at 16:21 Approved by: Kimberlee Jean M.D. on 06/06/2024 at 16:21
[2024-06-06] MEDS: MIDAZOLAM 2 MG/2 ML VIAL IV (09:53)
[2024-06-06] MEDS: DEXAMETHASONE 10 MG/ML VIAL INJ (09:55)
[2024-06-06] MEDS: LIDOCAINE 2% INJ MDV 20ML 10 ML INJ (09:55)
[2024-06-06] MEDS: LIDOCAINE 1% 20 ML INJ (09:56)
[2024-06-06] MEDS: BUPIVACAINE 0.5% (PF) 10 ML VIAL INJ (09:56)
[2024-06-06] MEDS: MIDAZOLAM 2 MG/2 ML VIAL 1 MG IV (10:05)
--- NOTE | 2024-06-06 10:24 | P.PCN_ITS ---
Date/Time/Diagnoses Date of procedure: 06/06/24 Time of procedure: 09:45 Procedure Notes Physician: Avinash Ramos Total Fluoroscopy time (seconds): 14 Total sedation minutes: 20 Procedure in detail & Post-procedure care: Left Genicular Nerve Radiofrequency Ablation Indications: Elsy is presenting for treatment of left knee osteoarthritis with knee pain. Preoperative diagnosis: Left knee osteoarthritis Postoperative diagnosis: Same Focused Examination: Ax3 Mood and affect are normal Vital Signs: VSS Consent: Following review of allergies and potential side effects/complications, including, but not necessarily limited to, infection, allergic reaction, local tissue breakdown, stroke, temporary or permanent nerve injury, paralysis, and possible , the patient indicated that they understood and agreed to proceed.? An informed consent document was signed by the patient, witnessed by a nurse and placed in the patient's chart.? Additionally, other treatment options including medications and physical therapy were reviewed with the patient. All questions were answered. Site was then marked. Anesthesia: After review of previous anesthetic history and IV conscious sedation, the patient was deemed safe to proceed with today's procedure with IV conscious sedation. IV sedation was accomplished with midazolam 3 mg administered by the RN after order by Dr. Ramos. Sedation was titrated to patient comfort during the course of the procedure. Patient remained responsive to all verbal commands. Position: Supine Monitoring: NIBP, Pulse oximetry, 3 lead EKG Procedure: The patient was brought into the procedure room and positioned into the supine position with the affected knee on a bolster for elevation. Skin overlying the left knee was prepped with a Chloraprep solution, allowed to air dry, and then draped in sterile fashion.? Oxygen applied via NC. Using the AP fluoroscopic view, skin and subcutaneous structures of the needle entry sites were infiltrated with 5 mL of lidocaine 1% divided among the 3 injection sites. Under AP and lateral fluoroscopic control, an 18 ga, 100 mm RFA needle with a 10 mm active tip was advanced into the expected location of the superomedial, superolateral and inferomedial genicular nerves. AP and lateral radiographs were taken to confirm proper needle placement. No paresthesias were noted. The stylet was removed and the radiofrequency probe was inserted through the cannula. Each level was individually tested.? Motor stimulation up to 2V did not elicit any motor stimulation. After negative aspiration, 1ml of 2% lidocaine was injected at each of the locations and radiofrequency ablation carried out using 50 degrees Celsius for 60 seconds. The needles were then withdrawn several milimeters and a second ablation was performed at 50 degrees Celsius for 60 seconds. The needles were then withdrawn several milimeters and a third ablation was performed at 50 degrees Celsius for 60 seconds. After ablation, a mixture of 10 mg dexamethasone with 0.5% bupivacaine 2 mL was injected in equal amounts among the sites (1 mL per site). At the end of the procedure the needles were withdrawn and Band-Aids were applied for a dressing. EBL: less than 1 ml Complications: None Post Procedure: Patient was taken to the recovery and monitored. The patient was provided a Pain Log to continue to record the patient's response to the target- specific procedure prior to the patient's follow-up visit with the referring physician. Patient was stable upon discharge. Detailed post procedure instructions were provided. Patient was asked to call in the event of worsening pain, fever, weakness, numbness or bladder or bowel incontinence
== END 2024-06-06 10:35 | disposition home or self-care (01) ==
LOC: RAD 09:16
PROVIDERS: PCP Family Medicine; Referring Provider Anesthesiology; Visit Provider Anesthesiology
DX: M17.12 Unilateral primary osteoarthritis, left knee (principal)
CPT/HCPCS: 64624; 99152; J1100; J2250

== ENCOUNTER → 2025-04-04 11:14 | Outpatient (CLI) | payer MEDICAID, SELFPAY ==
[2025-04-04 12:19] LABS: Cholesterol 170 mg/dL (140-199); HDL Cholesterol 49 mg/dL (40-60); LDL Cholesterol Calculated 81 mg/dL (<100); Triglycerides 201 mg/dL (35-150)
[2025-04-05 04:36] LABS: CRP, High Sensitivity 1.25 mg/L (0.00-3.00)
== END ==
LOC: LAB 11:15
PROVIDERS: PCP Family Medicine; Referring Provider Family Medicine; Visit Provider Family Medicine
DX: E78.2 Mixed hyperlipidemia (principal)
CPT/HCPCS: 36415; 80061; 86140

== ENCOUNTER → 2025-04-09 16:10 | Outpatient (CLI) | payer OTHER, SELFPAY ==
[2025-04-09 17:47] LABS: Alanine Aminotransferase 17 IU/L (<35); Albumin 4.3 g/dL (3.5-5.0); Albumin Globulin Ratio 1.7 (1.0-2.8); Alkaline Phosphatase 57 U/L (38-126); Aspartate Aminotransferase 25 IU/L (14-36); BUN Creatinine Ratio 21.8 (6-22); Bilirubin Total 0.7 mg/dL (0.2-1.3); Blood Urea Nitrogen 12 mg/dL (7-17); Calcium 9.5 mg/dL (8.4-10.2); Carbon Dioxide 29 mmol/L (22-32); Chloride 101 mmol/L (98-107); Estimated Glomerular Filt Rate > 60 mL/min (>60); Globulin 2.5 g/dL (1.7-4.1); Glucose 83 mg/dL (70-99); HEMOLYSIS < 15 (0-50); Potassium 3.9 mmol/L (3.4-5.1); Sodium 136 mmol/L (137-145); Total Protein 6.8 g/dL (6.3-8.2)
[2025-04-09 17:54] LABS: Hemoglobin A1C% w Est Avg Glu 4.6 % (4.0-6.0)
== END ==
LOC: LAB 16:12
PROVIDERS: PCP Family Medicine; Referring Provider Family Medicine; Visit Provider Family Medicine
DX: J45.51 Severe persistent asthma with (acute) exacerbation (principal); Z79.899 Other long term (current) drug therapy; E66.9 Obesity, unspecified; Z68.33 Body mass index [BMI] 33.0-33.9, adult; R74.8 Abnormal levels of other serum enzymes
CPT/HCPCS: 36415; 80053; 83036